=== PATIENT | male | born 1990 | race Caucasian/White ===

== ENCOUNTER 2017-11-27 12:28 | Emergency (ER) | payer OTHER ==
[~2017-11-27] VITALS: Ht 172.7 cm; Wt 67.7 kg
[~2017-11-27 12:28] MED LIST: CIPRO 250MG TA250 MG PO; FLOMAX 0.40.4 MG/CAP PO; NAPROSYN500 MG PO; NORCO 325 MG-7.1 TAB PO; PERCOCET 325 MG1 TA2 PO; ZOFRAN ODT4 MG PO
[2017-11-27 12:31] VITALS: BP 122/76; TEMP 97.6
[2017-11-27 13:02] LABS: COLLECTION METHOD CLEAN CATCH
[2017-11-27 13:08] LABS: MUCOUS Present /lpf; PH 6 (5-8); SQUAMOUS EPITHELIAL None Seen /hpf; URINE APPEARANCE Clear; URINE BACTERIA None Seen /hpf; URINE BILIRUBIN Negative (NEGATIVE); URINE BLOOD 2+ (NEGATIVE); URINE COLOR Yellow; URINE GLUCOSE Negative (NEGATIVE); URINE KETONE Negative (NEGATIVE); URINE LEUKOCYTE ESTERASE Negative (NEGATIVE); URINE NITRATE Negative (NEGATIVE); URINE PROTEIN(semi-quant) Negative (NEGATIVE); URINE RBC >50 /hpf; URINE UROBILINOGEN Negative (NEGATIVE)
[2017-11-27] MEDS ORDERED: NORCO 325 MG-51 TAB PO (14:37)
[2017-11-27 15:07] VITALS: PULSE 60
== END 2017-11-27 15:03 | disposition home or self-care (01) ==
LOC: COL.ER 12:28
PROVIDERS: Nurse Practitioner
DX: N20.1 Calculus of ureter (principal); Z87.442 Personal history of urinary calculi
CPT/HCPCS: J1885

== ENCOUNTER 2022-12-03 09:26 | Emergency (ER) | payer OTHER ==
[~2022-12-03] VITALS: Ht 172.7 cm; Wt 72.7 kg
[~2022-12-03 09:26] MED LIST changes: +AMOXICILLIN 50500 MG PO; +BACTRIM DS 8001 TAB PO; +CEPHALEXIN500 M1 PO; +CIPRO 500MG TA500 MG PO; +LOTRISONE 0.5 M1 CRE TP; +MOTRIN 800800 MG/TAB PO; +NO HOME MEDICATIONS; +NORCO 325 MG-51 TAB PO; +PRIL40 PO; +PRILOSEC 20MG20 MG PO; +SEPTRA DS 8001 TAB PO; +TYLENOL EXTRA500 M1 PO; +ZITHROMAX 250M250 MG PO; +ZOFRAN 4MG T4 MG/TAB PO
[2022-12-03 09:29] VITALS: BP 130/82; TEMP 98.1
[2022-12-03] MEDS ORDERED: AMOXICILLIN 8751 TAB PO (10:20)
[2022-12-03 10:33] VITALS: PULSE 64
== END 2022-12-03 10:34 | disposition home or self-care (01) ==
LOC: COL.ER 09:26
DX: H65.91 Unspecified nonsuppurative otitis media, right ear (principal); Z28.310 Unvaccinated for COVID-19
CPT/HCPCS: J1885